=== PATIENT | female | born 1975 | race African-American/Black ===

== ENCOUNTER 2018-10-19 11:13 | Emergency (ER) | payer OTHER ==
[~2018-10-19] VITALS: Ht 167.6 cm; Wt 77.6 kg
[~2018-10-19 11:13] MED LIST: NORCO 5-325 TA1 EACH PO
[2018-10-19] MEDS ORDERED: NORVASC5 MG PO (11:23)
[2018-10-19] MEDS ORDERED: COREG25 MG PO (11:23)
[2018-10-19] MEDS ORDERED: NORVASC10 MG PO (12:33)
[2018-10-19 13:32] LABS: ABSOLUTE NEUTROPHILS 6.4 thou/uL (1.4-8.2); BASOPHILS 0.8 % (0.0-2.0); EOSINOPHILS 0.6 % (0.0-3.0); HEMATOCRIT 47.4 % (37.0-47.0); HEMOGLOBIN 15.8 gm/dL (12.0-15.0); LYMPHOCYTES 14.2 % (24.0-44.0); MCH 29.9 pg (26.0-34.0); MCHC 33.3 g/dL (28.0-37.0); MCV 89.9 fL (80.0-100.0); MONOCYTES 10.9 % (1.0-8.0); POLYS 73.5 % (36.0-66.0); RBC 5.27 mil/uL (4.20-5.00); WBC 8.7 thou/uL (4.0-11.0)
[2018-10-19 13:41] LABS: ANION GAP 10 mmol/L (7-16); BUN 8 mg/dL (7-18); CHLORIDE 100 mmol/L (98-107); CO2 28 mmol/L (21-32); CREATININE 1.2 mg/dL (0.6-1.0); GLUCOSE 93 mg/dL (74-106); POTASSIUM 4.4 mmol/L (3.5-5.1); SODIUM 138 mmol/L (136-145)
[2018-10-19 13:51] LABS: ALBUMIN 3.9 g/dL (3.4-5.0); MAGNESIUM 2.3 mg/dL (1.8-2.4); SGOT 20 U/L (15-37); SGPT 22 U/L (30-65); TOTAL PROTEIN 8.1 g/dL (6.4-8.2); TROPONIN-I <0.06 ng/mL (<0.06)
[2018-10-19 14:46] LABS: URINE BILIRUBIN NEGATIVE (Negative); URINE BLOOD TRACE (Negative); URINE COLOR YELLOW; URINE GLUCOSE-RANDOM* NEGATIVE (Negative); URINE KETONES NEGATIVE (Negative); URINE LEUKOCYTES-REFLEX NEGATIVE (Negative); URINE NITRITE-REFLEX NEGATIVE (Negative); URINE PROTEIN (DIPSTICK) 2+ (Negative); URINE UROBILINOGEN 0.2 E.U./dl (0.2-1.0)
[2018-10-19 14:47] LABS: URINE CLARITY HAZY
[2018-10-19 14:53] LABS: SQUAMOUS >10 Many /LPF (0-3)
[2018-10-19 14:55] VITALS: BP 126/68
[2018-10-19 14:55] LABS: CASTS None Seen /LPF (None Seen); CRYSTALS None Seen /LPF (None Seen); URINE WBC-REFLEX 6-15 Few /HPF (0-5)
[2018-10-19 14:56] LABS: BACTERIA-REFLEX >30 Many /HPF (None Seen); URINE RBC 0-2 Rare /HPF (0-2)
[2018-10-19 15:05] LABS: LARGE PLATELETS RARE; PLATELET COUNT 195 thou/uL (150-400)
--- NOTE | 2018-10-20 11:07 | EKG ---
[place] [address] [facility] [place] [address] ELECTROCARDIOGRAM REPORT Name: MARGAUX MILLAN Room #: [id number] ������������������ Admission: 10/19/18 ������������������ Attend Phys: Discharge: 10/19/18 ������������������ Date of : 73 Report #: [id number] ����������������������������������������������������������������� [id number] THIS REPORT FOR: //name// [facility] ED Test Date: 2018-10-19 Test Time: 12:47:15 Pat Name: MARGAUX MILLAN Department: Room: Gender: F [employer]: [place] : 1975 Requested By: Gino Andrade Order Number: [id number] MD: Caesar Scherer Measurements Intervals [place] Rate: 89 P: 50 [place]: 148 QRS: 7 QRSD: 86 T: 35 QT: 369 QTc: 449 Interpretive Statements Sinus rhythm Normal tracing No previous ECG available for comparison Electronically Signed On 10-20-2018 11:06:54 CDT by aCesar Scherer [email or web address] ��������������������������������������������� <ELECTRONICALLY SIGNED> ���������������������������������������� By: Caesar Scherer MD, [facility] ��������������������������������������������� 10/20/18 1106 1247 1247 Caesar Scherer MD, FACC /EPI
== END 2018-10-19 15:05 | disposition home or self-care (01) ==
LOC: ER 11:13
PROVIDERS: Emergency Medicine
DX: I10 Essential (primary) hypertension (principal); R42 Dizziness and giddiness; Z90.710 Acquired absence of both cervix and uterus